=== PATIENT | male | born 1960 | race Caucasian/White ===

== ENCOUNTER 2022-10-05 10:48 | Observation (INO) | payer OTHER ==
[~2022-10-05] VITALS: Ht 190.5 cm; Wt 107.0 kg
[2022-10-05 11:18] LABS: BASOPHILS % 0.4 % (0.0-1.0); EOSINOPHILS # (AUTO) 0.4 (0.0-0.4); EOSINOPHILS % 3.8 % (0.0-6.0); HEMATOCRIT 42.4 % (38.2-49.6); HEMOGLOBIN 13.8 g/dL (14.0-18.0); LYMPHOCYTES # (AUTO) 0.5 (1.0-3.2); LYMPHOCYTES % 5.6 % (18.0-39.1); MEAN CORPUSCULAR HEMOGLOBIN 29.8 pg (28-32); MEAN CORPUSCULAR HGB CONC 32.5 g/dL (31-35); MEAN CORPUSCULAR VOLUME 91.6 fL (81-99); MONOCYTES # (AUTO) 0.7 (0.2-0.8); MONOCYTES % 6.9 % (4.4-11.3); NEUTROPHILS % 82.9 % (38.7-80.0); PLATELET COUNT 273 x10e3/uL (140-360); RED BLOOD COUNT 4.63 x10e6/uL (4.3-5.7); RED CELL DISTRIBUTION WIDTH 12.9 % (11.7-14.4)
[2022-10-05 11:37] LABS: ALBUMIN 3.9 g/dL (3.5-5.0); ALBUMIN/GLOBULIN RATIO 1.2 (0.8-2.0); ANION GAP 14.2 mmol/L (8-16); CALCIUM 8.8 mg/dL (8.4-10.2); CREATININE, SERUM 1.1 mg/dL (0.72-1.25); LIPASE 119 U/L (8-78); POTASSIUM 4.2 mmol/L (3.5-5.1)
[2022-10-05] MEDS ORDERED: Morphine 4mg INJECTION 4 MG/ML INJ IV PRN (12:30)
[2022-10-05] MEDS ORDERED: ASPIRIN 81 MG CHEW TAB PO ONE ×2 (12:30)
[2022-10-05] MEDS ORDERED: ONDANSETRON HCL INJ 2MG/ML 2ML 2 MG/ML VIAL IV PRN (12:30)
[2022-10-05] MEDS ORDERED: SIMETHICONE 80 MG CHEW PO PRN (13:30)
[2022-10-05] MEDS ORDERED: DOCUSATE SODIUM 100 MG CAP PO PRN (13:30)
[2022-10-05] MEDS ORDERED: ACETAMINOPHEN 325 MG TAB PO PRN (13:30)
[2022-10-05] MEDS ORDERED: MELATONIN 3 MG TAB PO PRN (13:30)
[2022-10-05 13:50] LABS: CHOL/HDL RATIO 3.1 (3.9-4.7)
[2022-10-05 14:10] VITALS: PULSE 71; RESP 20; O2SAT 97
[2022-10-05] MEDS: ENOXAPARIN SOD INJ 40 MG/0.4 ML SYR SC SCH (14:46)
[2022-10-05] MEDS: FAMOTIDINE 20 MG TAB PO SCH (14:46)
[2022-10-05 18:00] VITALS: BP 127/76; PULSE 94; RESP 22; TEMP 98.5; O2SAT 98
[2022-10-05 18:28] VITALS: BP 127/76; PULSE 94; RESP 22; TEMP 98.5; O2SAT 98
[2022-10-05 18:47] VITALS: BP 127/76; PULSE 94; RESP 22; TEMP 98.5; O2SAT 98
[2022-10-05 19:19] LABS: CREATINE KINASE 75 IU/L (30-200)
[2022-10-05 20:00] VITALS: BP 122/80; PULSE 88; RESP 18; TEMP 98.5; O2SAT 98
[2022-10-05] MEDS ORDERED: BUPROPION XL150 MG PO (22:15)
[2022-10-05] MEDS ORDERED: METOPROLOL TART25 MG PO (22:15)
[2022-10-05] MEDS ORDERED: GABAPENTIN300 MG PO (22:15)
[2022-10-05] MEDS ORDERED: JARDIANCE25 MG (22:15)
[2022-10-05] MEDS ORDERED: CLOPIDOGREL75 MG PO (22:15)
[2022-10-05] MEDS ORDERED: ASPIRIN81 MG PO (22:15)
[2022-10-05] MEDS ORDERED: SIMVASTATIN40 MG PO (22:15)
[2022-10-05] MEDS ORDERED: HUMALOG100 UNIT/1 (22:15)
[2022-10-05] MEDS ORDERED: IRBESARTAN150 MG PO (22:15)
[2022-10-05] MEDS ORDERED: TOUJEO SOL300 UNIT/1 (22:15)
[2022-10-05] MEDS ORDERED: ATORVASTATIN CA40 MG PO (22:15)
[2022-10-05] MEDS ORDERED: METFORMIN HCL500 M2 PO (22:15)
[2022-10-05] MEDS ORDERED: SERTRALINE HCL50 MG PO (22:15)
[2022-10-05] MEDS ORDERED: OZEMPIC1 MG/0.71 (22:15)
[2022-10-05] MEDS ORDERED: LORATADINE10 MG PO (22:15)
[2022-10-05] MEDS ORDERED: HYDROXYZINE HCL10 MG PO (22:15)
[2022-10-05 23:04] VITALS: BP 122/80; PULSE 88; RESP 18; TEMP 98.5; O2SAT 98
[2022-10-06] VITALS (7 sets, daily range): BP systolic 115–133; BP diastolic 70–78; PULSE 84–109; RESP 16–22; TEMP 97.9–98.6; O2SAT 95–98
[2022-10-06 05:49] LABS: BASOPHILS % 0.5 % (0.0-1.0); EOSINOPHILS # (AUTO) 0.4 (0.0-0.4); EOSINOPHILS % 6.1 % (0.0-6.0); HEMATOCRIT 41.6 % (38.2-49.6); HEMOGLOBIN 13.6 g/dL (14.0-18.0); LYMPHOCYTES # (AUTO) 1.1 (1.0-3.2); MEAN CORPUSCULAR HEMOGLOBIN 29.8 pg (28-32); MEAN CORPUSCULAR HGB CONC 32.7 g/dL (31-35); MONOCYTES # (AUTO) 0.7 (0.2-0.8); MONOCYTES % 11.9 % (4.4-11.3); NEUTROPHILS # (AUTO) 3.8 (2.1-6.9); NEUTROPHILS % 63.3 % (38.7-80.0); PLATELET COUNT 249 x10e3/uL (140-360); RED BLOOD COUNT 4.57 x10e6/uL (4.3-5.7); RED CELL DISTRIBUTION WIDTH 12.8 % (11.7-14.4)
[2022-10-06 06:22] LABS: CALCIUM 8.6 mg/dL (8.4-10.2); CREATININE, SERUM 0.95 mg/dL (0.72-1.25)
[2022-10-06 07:01] LABS: CREATINE KINASE 64 IU/L (30-200)
[2022-10-06] MEDS ORDERED: NON-FORMULARY MEDICATION (Insulin Lispro (Humalog) 8 UNITS) SCH (07:30)
[2022-10-06] MEDS ORDERED: ASPIRIN 81 MG CHEW TAB PO SCH (09:00)
[2022-10-06] MEDS ORDERED: ASPIRIN 81 MG ENTERIC COATED PO SCH (09:00)
[2022-10-06] MEDS ORDERED: LORATADINE 10 MG TAB PO SCH (09:00)
[2022-10-06] MEDS ORDERED: CLOPIDOGREL BISULFATE 75 MG TAB PO SCH (09:00)
[2022-10-06] MEDS: METOPROLOL TARTRATE 25 MG TAB PO SCH ×2 (09:00→18:29)
[2022-10-06] MEDS ORDERED: ATORVASTATIN 40 MG TAB PO SCH (09:00)
[2022-10-06] MEDS ORDERED: IRBESARTAN 150 MG TAB PO SCH (09:00)
[2022-10-06] MEDS ORDERED: SERTRALINE HCL 50 MG TAB PO SCH (09:00)
[2022-10-06] MEDS: FAMOTIDINE 20 MG TAB PO SCH ×2 (10:02→15:47)
[2022-10-06] MEDS: GABAPENTIN 300 MG CAP PO SCH ×2 (10:02→15:46)
[2022-10-06] MEDS ORDERED: BUPROPION HCL 150 MG TABCR PO SCH (12:30)
[2022-10-06] MEDS ORDERED: DEXTROSE 50% SYRINGE 50 ML IV PRN (14:00)
[2022-10-06] MEDS ORDERED: ONDANSETRON HCL 4 MG ORAL DISINTEGRATING TAB PO PRN (14:15)
[2022-10-06] MEDS: INSULIN LISPRO 100 UNIT/1 ML 3ML VIAL SQ SCH ×2 (14:22→16:30)
[2022-10-06 14:41] LABS: CREATINE KINASE 62 IU/L (30-200)
[2022-10-06] MEDS ORDERED: INSULIN LISPRO 100 UNIT/1 ML 3ML VIAL SQ SCH (16:30)
[2022-10-06] MEDS: ENOXAPARIN SOD INJ 40 MG/0.4 ML SYR SC SCH (18:25)
[2022-10-06] MEDS ORDERED: INSULIN GLARGINE HUM REC ANLOG 24 UNIT SQ SCH (21:00)
== END 2022-10-06 21:07 | disposition home or self-care (01) ==
LOC: ER 10:57 → ERHOLD 12:32 → MED/SURG 17:35
PROVIDERS: ADMIT Internal Medicine; ATTEND Internal Medicine
DX: R07.89 Other chest pain (principal); E11.65 Type 2 diabetes mellitus with hyperglycemia; E87.1 Hypo-osmolality and hyponatremia; E78.5 Hyperlipidemia, unspecified; I25.10 Atherosclerotic heart disease of native coronary artery without angina pectoris; R00.0 Tachycardia, unspecified; Z20.822 Contact with and (suspected) exposure to COVID-19; Z79.82 Long term (current) use of aspirin; Z79.02 Long term (current) use of antithrombotics/antiplatelets; Z79.4 Long term (current) use of insulin; Z79.84 Long term (current) use of oral hypoglycemic drugs; Z79.899 Other long term (current) drug therapy; Z98.61 Coronary angioplasty status; Z82.49 Family history of ischemic heart disease and other diseases of the circulatory system
CPT/HCPCS: 0223U; 36415 ×2; 71045; 76705; 80048; 80053; 80061; 82550 ×2; 82553 ×2; 82948 ×2; 83036; 83690; 84484 ×2; 85025 ×2; 93005; 93017; 94799 ×2; 99284; G0378 ×2; J1650 ×2

== ENCOUNTER 2024-08-05 15:15 | Emergency (ER) | payer OTHER ==
[~2024-08-05] VITALS: Ht 190.5 cm; Wt 107.0 kg
[~2024-08-05 15:15] MED LIST: ASPIRIN81 MG PO; ATORVASTATIN CA40 MG PO; BUPROPION XL150 MG PO; CLOPIDOGREL75 MG PO; GABAPENTIN300 MG PO; HUMALOG100 UNIT/1; HYDROXYZINE HCL10 MG PO; IRBESARTAN150 MG PO; JARDIANCE25 MG; LORATADINE10 MG PO; METFORMIN HCL500 M2 PO; METOPROLOL TART25 MG PO; OZEMPIC1 MG/0.71; SERTRALINE HCL50 MG PO; SIMVASTATIN40 MG PO; TOUJEO SOL300 UNIT/1
[2024-08-05 15:18] VITALS: TEMP 98.5
[2024-08-05 15:38] LABS: BASOPHILS # (AUTO) 0.1 (0.0-0.1); EOSINOPHILS # (AUTO) 0.4 (0.0-0.4); EOSINOPHILS % 5.1 % (0.0-6.0); HEMATOCRIT 40.9 % (38.2-49.6); HEMOGLOBIN 13.6 g/dL (14.0-18.0); LYMPHOCYTES # (AUTO) 2.5 (1.0-3.2); LYMPHOCYTES % 29.2 % (18.0-39.1); MEAN CORPUSCULAR HEMOGLOBIN 29.8 pg (28-32); MEAN CORPUSCULAR HGB CONC 33.3 g/dL (31-35); MEAN CORPUSCULAR VOLUME 89.5 fL (81-99); MONOCYTES # (AUTO) 0.7 (0.2-0.8); MONOCYTES % 8.1 % (4.4-11.3); NEUTROPHILS # (AUTO) 4.7 (2.1-6.9); NEUTROPHILS % 56.4 % (38.7-80.0); PLATELET COUNT 274 x10e3/uL (140-360); RED BLOOD COUNT 4.57 x10e6/uL (4.3-5.7); RED CELL DISTRIBUTION WIDTH 12.9 % (11.7-14.4); WHITE BLOOD COUNT 8.39 x10e3/uL (4.8-10.8)
[2024-08-05 15:54] LABS: INR 0.9; PROTHROMBIN TIME 12.7 seconds (11.9-14.5)
[2024-08-05 15:55] LABS: PARTIAL THROMBOPLASTIN TIME 30.1 seconds (23.8-35.5)
[2024-08-05] MEDS: SODIUM CHLORIDE 0.9% 1000ML 1,000 ML IV STA (15:56)
[2024-08-05 15:57] LABS: INFLUENZA A AG NEGATIVE (NEGATIVE); INFLUENZA B AG NEGATIVE (NEGATIVE)
[2024-08-05 15:58] LABS: CORONAVIRUS COVID-19 AG NEGATIVE (NEGATIVE)
[2024-08-05 16:10] LABS: TROPONIN I 0.01 ng/mL (0-0.300)
[2024-08-05 16:55] LABS: ALBUMIN 4.1 g/dL (3.5-5.0); ALBUMIN/GLOBULIN RATIO 1.4 (0.8-2.0); ANION GAP 17.3 mmol/L (8-16); BILIRUBIN,TOTAL 0.5 mg/dL (0.2-1.2); CALCIUM 8.9 mg/dL (8.4-10.2); CREATININE, SERUM 1.35 mg/dL (0.72-1.25); MAGNESIUM 2.1 MG/DL (1.3-2.1); POTASSIUM 4.3 mmol/L (3.5-5.1); TOTAL PROTEIN 7.1 g/dL (6.5-8.1)
[2024-08-05] MEDS ORDERED: PREDNISONE20 MG PO (17:43)
[2024-08-05] MEDS: DEXAMETHASONE SOD PHOS 10 MG/1 ML VIAL IV ONE (17:49)
[2024-08-05 17:58] VITALS: PULSE 80; RESP 16; O2SAT 97
== END 2024-08-05 18:01 | disposition home or self-care (01) ==
LOC: ER 15:25
DX: R05.9 Cough, unspecified (principal); B34.9 Viral infection, unspecified; R07.89 Other chest pain; E11.65 Type 2 diabetes mellitus with hyperglycemia; I25.10 Atherosclerotic heart disease of native coronary artery without angina pectoris; E78.5 Hyperlipidemia, unspecified; F41.9 Anxiety disorder, unspecified; F32.A Depression, unspecified; M54.9 Dorsalgia, unspecified; G89.29 Other chronic pain; Z11.52 Encounter for screening for COVID-19; Z95.5 Presence of coronary angioplasty implant and graft
CPT/HCPCS: 36415; 71045; 80053; 82550; 83735; 83880; 84484; 85025; 85610; 85730; 87428; 93005; 99284; J1100; J7030